=== PATIENT | female | born 1940 | race Caucasian/White ===

== ENCOUNTER 2022-05-11 12:29 | Outpatient (CLI) | payer MEDICARE, SELFPAY ==
[2022-05-16 11:36] LABS: Anti Cyclic Citrullinated Pept <16 Units (<20)
== END 2022-05-11 12:30 | disposition home or self-care (01) ==
PROVIDERS: PCP Family Medicine; Visit Provider Internal Medicine
DX: M19.90 Unspecified osteoarthritis, unspecified site (principal)
CPT/HCPCS: 36415; 86200

== ENCOUNTER → 2022-10-21 09:36 | Outpatient (CLI) | payer MEDICARE, SELFPAY ==
--- NOTE | ~2022-10-21 | CT_ITS ---
Noncontrast CT scan of the lumbar spine CLINICAL HISTORY: Spinal stenosis TECHNIQUE: Axial noncontrast imaging of the lumbar spine was performed. Sagittal and coronal reformat gilbert images were constructed. Dose reduction technique was used on this scan by utilizing automated ex posure control and iterative reconstruction technique. The dose-length product (DLP) was 499.09 mGy-c m. FINDINGS: No fracture identified. 4 mm anterolisthesis of L4 over L5 is present. There is severe dege nerative disc narrowing at L4-L5. Remaining disc spaces are preserved. At L1-L2, there is no disc bulge or herniation. There is minimal facet joint degenerative change. No spinal canal stenosis or definite neural foraminal narrowing. At L2-L3, there is minimal disc bulge. There is mild to moderate facet arthropathy. No ever central canal stenosis. No definite neural foraminal narrowing. L3-L4, there is minimal disc bulge and mild facet arthropathy. No central canal stenosis or definite neural foraminal narrowing. At L4-L5, there is diffuse disc bulge/uncovering with mild to moderate facet arthropathy. No central canal stenosis. There is mild to moderate bilateral neural foraminal narrowing. At L5-S1, there is no disc bulge or herniation. No spinal canal stenosis or neural foraminal narrowin g. Paravertebral soft tissues are unremarkable. Extensive atherosclerotic calcifications of the aorta ar e present. Impression: 4 mm anterolisthesis of L4 over L5. Moderate degenerative change at the L4-L5 level, as detailed above. Reviewed, dictated and finalized at [facility]. Impression: 4 mm anterolisthesis of L4 over L5. Moderate degenerative change at the L4-L5 level, as detailed above.
== END ==
PROVIDERS: Visit Provider Orthopaedic Surgery
DX: M48.061 Spinal stenosis, lumbar region without neurogenic claudication (principal); M43.16 Spondylolisthesis, lumbar region
CPT/HCPCS: 72131